=== PATIENT | male | born 1990 | race American Indian/Alaskan Native ===

== ENCOUNTER 2022-07-18 10:03 | Outpatient (CLI) | payer MEDICAID ==
--- NOTE | 2022-07-18 14:39 | Ultrasound Report ---
ULTRASOUND ABDOMEN, COMPLETE INDICATION / CLINICAL INFORMATION: R33.0. Pain from urinary retention COMPARISON: None available. FINDINGS: PANCREAS: No significant abnormality. ABDOMINAL AORTA: No significant abnormality. IVC: No significant abnormality. LIVER: The liver is normal in size measuring 15.4 cm . No evidence of focal hepatic lesion. Normal he patopedal blood flow within the main portal vein. GALLBLADDER: Small amount of sludge noted in the gallbladder. No evidence of gallstones, wall thicken ing, or pericholecystic fluid. BILE DUCTS: No significant abnormality. Common bile duct measures 3 mm. KIDNEYS: Right: The right kidney measures 11.5 cm. Mildly hyperechoic mass in the midpole measuring 2 .5 x 1.5 x 1.8 cm. Left: The left kidney measures 11.4 cm. Mild hydronephrosis. SPLEEN: The spleen measures 8.9 cm. No significant abnormality. FREE FLUID: None. ADDITIONAL FINDINGS: The bladder is only partially distended with mild circumferential bladder wall t hickening measuring up to 6 mm. IMPRESSION: 1. Hyperechoic right renal mass measuring 2.5 cm. Recommend follow-up CT urogram for further evaluati on. 2. Mild left hydronephrosis without sonographic evidence of obstructing mass or stone. 3. Mild circumferential bladder wall thickening. Correlation with urinalysis recommended to exclude a n acute cystitis. 4. Small amount of gallbladder sludge without evidence for acute cholecystitis. Scribed by: Jade Mancia RDMS, AMAYA, ANNABELLE Scribed: 07/18/2022 12:45 PM I have reviewed the images, agree with this report, and edited this report as needed. Signer Name: Jared Welch MD Signed: 07/18/2022 2:34 PM Workstation Name: [id number]
== END 2022-07-18 10:04 | disposition home or self-care (01) ==
LOC: US 10:03
PROVIDERS: ATTEND Internal Medicine
DX: N13.30 Unspecified hydronephrosis (principal); R35.0 Frequency of micturition; R74.01 Elevation of levels of liver transaminase levels; N28.89 Other specified disorders of kidney and ureter; Z79.899 Other long term (current) drug therapy
CPT/HCPCS: 76700